=== PATIENT | female | born 1970 | race African-American/Black ===

== ENCOUNTER 2018-03-25 06:20 | Emergency (ER) | payer SELFPAY ==
[~2018-03-25] VITALS: Ht 175.3 cm; Wt 70.3 kg
--- OUTSIDE RECORDS SUMMARY | 2018-03-25 06:22 | XMS REPORT ---
[facility] Phone Unavailable Care Team Providers Care Ethylbenzene Oxidizer Name Role Phone Unavailable Unavailable Problems This patient has no known problems. Allergies, Adverse Reactions, Alerts This patient has no known allergies or adverse reactions. Medications This patient has no known medications. Encounters Start Date/Time End Date/Time Encounter Type Admission Type Attending [facility] Facility Care Department Encounter ID 2017-09-09 08:47:18 Inpatient [facility] [id number] 2017-09-09 00:00:00 Inpatient [facility] [id number] 2018-04-15 00:00:00 2018-04-15 00:00:00 Outpatient [facility] [id number] 2018-03-16 00:00:00 2018-03-16 00:00:00 Outpatient [facility] [id number] 2018-02-03 11:46:40 2018-02-03 11:46:40 Outpatient [facility] [id number] 2018-01-27 00:00:00 2018-01-27 00:00:00 Outpatient [facility] [id number] 2018-01-26 00:00:00 2018-01-26 00:00:00 Outpatient [facility] [id number] 2018-01-25 09:38:40 2018-01-25 09:38:40 Emergency [facility] [id number] 2018-01-25 00:00:00 2018-01-25 00:00:00 Outpatient [facility] [id number] 2018-01-25 00:00:00 2018-01-25 00:00:00 Outpatient [facility] [id number] 2018-01-07 00:00:00 2018-01-07 00:00:00 Outpatient [facility] [id number] 2017-10-22 13:12:48 2017-10-22 13:12:48 Outpatient [facility] [id number] 2017-10-02 13:38:02 2017-10-02 13:38:02 Outpatient [facility] [id number] 2017-10-02 00:00:00 2017-10-02 00:00:00 Outpatient [facility] [id number] 2017-09-23 14:46:37 2017-09-23 14:46:37 Outpatient [facility] [id number] 2017-09-22 06:05:19 2017-09-22 06:05:19 Outpatient [facility] [id number] 2017-09-16 00:00:00 2017-09-16 00:00:00 Outpatient [facility] [id number] 2017-09-11 00:00:00 2017-09-11 00:00:00 Outpatient [facility] [id number] 2017-09-07 17:21:46 2017-09-07 17:21:46 Inpatient [facility] [id number] 2017-09-07 13:45:40 2017-09-07 13:45:40 Outpatient [facility] [id number] 2017-09-01 00:00:00 2017-09-01 00:00:00 Outpatient [facility] [id number] 2017-08-13 09:23:29 2017-08-13 09:23:29 Outpatient [facility] [id number] 2017-08-12 00:00:00 2017-08-12 00:00:00 Outpatient [facility] [id number] 2017-07-30 14:25:52 2017-07-30 14:25:52 Outpatient [facility] [id number] 2017-07-08 10:27:49 2017-07-08 10:27:49 Outpatient [facility] [id number] 2017-07-01 09:26:41 2017-07-01 09:26:41 Outpatient [facility] [id number] 2017-06-30 00:00:00 2017-06-30 00:00:00 Outpatient [facility] [id number] 2017-06-23 08:51:53 2017-06-23 08:51:53 Outpatient [facility] [id number] 2017-06-18 10:25:58 2017-06-18 10:25:58 Outpatient [facility] [id number] 2017-06-12 09:13:31 2017-06-12 09:13:31 Outpatient [facility] [id number] 2017-06-12 00:00:00 2017-06-12 00:00:00 Outpatient [facility] [id number] 2017-06-11 00:00:00 2017-06-11 00:00:00 Outpatient [facility] [id number] 2017-06-11 00:00:00 2017-06-11 00:00:00 Outpatient [facility] [id number] 2017-06-10 06:26:30 2017-06-10 06:26:30 Outpatient [facility] [id number] 2017-06-09 11:39:54 2017-06-09 11:39:54 Outpatient [facility] [id number] 2017-06-09 00:00:00 2017-06-09 00:00:00 Outpatient [facility] [id number] 2017-06-09 00:00:00 2017-06-09 00:00:00 Outpatient [facility] [id number] 2017-06-08 17:21:43 2017-06-08 17:21:43 Outpatient [facility] [id number] 2017-06-07 12:45:55 2017-06-07 12:45:55 Emergency [facility] [id number] 2017-06-07 11:37:54 2017-06-07 11:37:54 Emergency [facility] [id number] 2017-05-14 09:12:53 2017-05-14 09:12:53 Outpatient [facility] [id number] 2017-05-07 15:48:46 2017-05-07 15:48:46 Outpatient [facility] [id number] 2017-05-06 00:00:00 2017-05-06 00:00:00 Outpatient [facility] [id number] 2017-04-29 00:00:00 2017-04-29 00:00:00 Outpatient [facility] [id number] 2017-03-25 09:49:49 2017-03-25 09:49:49 Outpatient [facility] [id number] 2017-03-19 08:49:36 2017-03-19 08:49:36 Outpatient [facility] [id number] 2017-02-20 13:09:42 2017-02-20 13:09:42 Outpatient [facility] [id number] 2017-02-20 00:00:00 2017-02-20 00:00:00 Outpatient [facility] [id number] 2017-02-05 09:00:25 2017-02-05 09:00:25 Outpatient [facility] [id number] 2017-01-29 12:06:08 2017-01-29 12:06:08 Outpatient [facility] [id number] 2017-01-28 09:36:07 2017-01-28 09:36:07 Outpatient [facility] [id number]
[2018-03-25 07:13] LABS: BASOPHILS % 0.3 % (0.0-1.0); EOSINOPHILS % 0.5 % (0.0-6.0); HEMATOCRIT 31.3 % (34.2-44.1); HEMOGLOBIN 10.4 g/dL (12.0-16.0); LYMPHOCYTES # (AUTO) 2.4 (1.0-3.2); LYMPHOCYTES % 31.9 % (18.0-39.1); MEAN CORPUSCULAR HEMOGLOBIN 26.4 pg (28-32); MEAN CORPUSCULAR HGB CONC 33.2 g/dL (31-35); MEAN CORPUSCULAR VOLUME 79.4 fL (81-99); MONOCYTES # (AUTO) 0.8 (0.2-0.8); MONOCYTES % 9.9 % (4.4-11.3); NEUTROPHILS # (AUTO) 4.4 (2.1-6.9); NEUTROPHILS % 57.1 % (38.7-80.0); PLATELET COUNT 318 x10e3/uL (140-360); RED BLOOD COUNT 3.94 x10e6/uL (3.6-5.1); RED CELL DISTRIBUTION WIDTH 16.8 % (11.7-14.4)
[2018-03-25 07:20] LABS: INR 0.91; PROTHROMBIN TIME 13.1 seconds (11.9-14.5)
[2018-03-25 07:21] LABS: PARTIAL THROMBOPLASTIN TIME 31.3 seconds (23.8-35.5)
[2018-03-25 07:22] LABS: BILIRUBIN,URINE NEGATIVE (NEGATIVE); CLARITY,URINE HAZY (CLEAR); COLOR,URINE YELLOW (YELLOW); KETONES,URINE NEGATIVE (NEGATIVE); LEUKOCYTE ESTERASE ,URINE TRACE (NEGATIVE); NITRITE,URINE NEGATIVE (NEGATIVE); PROTEIN,URINE DIPSTICK NEGATIVE (NEGATIVE); URINE UROBILINOGEN 0.2 mg/dL (0.2 - 1)
[2018-03-25 07:28] LABS: WBC,URINE (MAN) 0-5 /HPF (0-5)
[2018-03-25 07:29] LABS: AMORPHOUS SEDIMENT,URINE FEW (FEW); BACTERIA,URINE FEW /HPF; EPITHELIAL CELLS,URINE FEW /LPF; RBC,URINE 0-5 /HPF (0-5)
[2018-03-25 07:30] LABS: ALANINE AMINOTRANSFERASE 33 IU/L (0-55); ALBUMIN 3.6 g/dL (3.5-5.0); ALBUMIN/GLOBULIN RATIO 0.9 (0.8-2.0); ALKALINE PHOSPHATASE 89 IU/L (40-150); ANION GAP 10.5 mmol/L (8-16); BLOOD UREA NITROGEN 10 mg/dL (7-26); BUN/CREATININE RATIO 13 (6-25); CALCIUM 9.1 mg/dL (8.4-10.2); CARBON DIOXIDE 22 mmol/L (22-29); CHLORIDE 107 mmol/L (98-107); CREATINE KINASE 88 IU/L (29-168); CREATININE, SERUM 0.77 mg/dL (0.57-1.11); EST GLOMERULAR FILTRATION RATE > 60 ML/MIN (60-); GLUCOSE 107 mg/dL (74-118); POTASSIUM 3.5 mmol/L (3.5-5.1); SODIUM 136 mmol/L (136-145)
[2018-03-25 08:16] VITALS: BP 136/78
--- NOTE | 2018-03-25 14:13 | Diagnostic Imaging Report ---
EXAMINATION: PA and lateral views of the chest. COMPARISON: None CLINICAL HISTORY: Chest pain DISCUSSION: Lines/tubes: None. Lungs: The lungs are well inflated and clear. There is no evidence of pneumonia or pulmonary edema. Pleura: There is no pleural effusion or pneumothorax. Heart and mediastinum: Mild enlarged cardiac silhouette. The pulmonary vasculature is normal. Bones and soft tissues: No acute bony abnormalities. IMPRESSION: Mildly enlarged cardiac silhouette, without acute cardiopulmonary abnormalities. Signed by: Dr. Rick Encarnacion M.D. on 03/25/2018 2:10 PM
== END 2018-03-25 08:32 | disposition home or self-care (01) ==
LOC: ER 06:20
DX: R07.89 Other chest pain (principal); I20.9 Angina pectoris, unspecified; I25.10 Atherosclerotic heart disease of native coronary artery without angina pectoris; E78.5 Hyperlipidemia, unspecified; Z95.5 Presence of coronary angioplasty implant and graft; F17.210 Nicotine dependence, cigarettes, uncomplicated
CPT/HCPCS: 36415; 71046; 80053; 81001; 82550; 82553; 84484; 85025; 85610; 85730; 93005; 99284